=== PATIENT | male | born 1955 | race African-American/Black ===

== ENCOUNTER 2024-08-14 12:32 | Emergency (ER) | payer MEDICARE, MEDICAID, SELFPAY ==
[2024-08-14] VITALS (19 sets, daily range): BP systolic 105–147; BP diastolic 53–87; PULSE 94–111; TEMP 37.4; O2SAT 92–100; BMI 23.4
--- NOTE | 2024-08-14 13:06 | ED.GENADUL1 ---
HPI HPI - General Adult General Chief complaint: Shortness of Breath/Dyspnea Stated complaint: FLU LIKE SYMPTOMS Time Seen by Provider: 08/14/24 12:43 Source: patient Mode of arrival: walk-in History of Present Illness HPI narrative: Patient states he started getting cold symptoms 3 days ago with chills and then shortness of breath. He also noted swelling of the left hemiscrotum 2 or 3 days ago and called his PCP and was started on oral Bactrim yesterday. He has a history of myelodysplastic syndrome. Patient states that he runs low blood counts but when the counts go up he is started on oral chemotherapy which she is currently taking. He follows up with an oncologist in [place] and his PCP is also in [place]. Related Data Home Medications ?Medication ?Instructions ?Recorded ?Confirmed clopidogrel 75 mg tablet 75 mg PO DAILY 08/14/24 08/14/24 diltiazem HCl 240 mg 240 mg PO DAILY 08/14/24 08/14/24 capsule,extended release 24 hr (Cartia XT) famotidine 20 mg tablet 20 mg PO .hs PRN heartburn 08/14/24 08/14/24 hydrochlorothiazide 25 mg tablet 25 mg PO DAILY 08/14/24 08/14/24 lisinopril 20 mg tablet 20 mg PO DAILY 08/14/24 08/14/24 sulfamethoxazole 800 1 tab PO BID 08/14/24 08/14/24 mg-trimethoprim 160 mg tablet Previous Rx's ?Medication ?Instructions ?Recorded dextromethorphan-guaifenesin 30 1 tab PO BID #20 tabs 08/14/24 mg-600 mg tablet extended [id number] hr (Mucinex DM) doxycycline hyclate 100 mg capsule 100 mg PO BID 10 days #20 caps 08/14/24 Allergies Allergy/AdvReac Type Severity Reaction Status Date / Time Penicillins Allergy Unknown Verified 08/14/24 12:41 Opioid HPI Opioid Management Most Recent Opioid Data: No Data to Display Review of Systems ROS Status of ROS 10 or more systems reviewed and unremarkable except as noted in history and below [facility] Social History Little interest or pleasure in doing things: not at all Feeling down, depressed, or hopeless: not at all Exam Narrative Exam Narrative: Patient does not appear acutely ill or septic. He is normotensive and the heart rate is within normal range at 97 bpm. Temp is 99.4 degrees and his oxygen saturation on room air is 92%. There is no conversational dyspnea. HEENT exam is normal to inspection. Neck is supple. Lung sounds are grossly clear bilaterally. He is not wheezing and there are no rales. Heart has regular rate and rhythm. Abdomen is soft nontender. There is no organomegaly. Examination of the external genitalia reveals induration and firmness of the left hemiscrotum with minimal tenderness. There is no underlying crepitus or fluctuance. No penile lesions are noted. Patient does not have cellulitis of the perineum or groin. Lower extremities are warm and dry. He does not have unilateral leg swelling. Constitutional Vital Signs, click to edit/add: Last Vital Signs Temp 99.4 F 08/14/24 12:42 Pulse 97 H 08/14/24 17:00 Resp 23 H 08/14/24 17:00 BP 121/53 08/14/24 17:00 Pulse Ox 92 L 08/14/24 14:31 O2 Del Method Room Air 08/14/24 12:42 Course Vital Signs Vital signs: Vital Signs Temperature 99.4 F 08/14/24 12:42 Pulse Rate 96 H 08/14/24 12:42 Respiratory Rate 20 08/14/24 12:42 Blood Pressure 122/87 08/14/24 12:42 Pulse Oximetry 100 08/14/24 12:42 Oxygen Delivery Method Room Air 08/14/24 12:42 Temperature 99.4 F 08/14/24 12:42 Pulse Rate 97 H 08/14/24 17:00 Respiratory Rate 23 H 08/14/24 17:00 Blood Pressure 121/53 08/14/24 17:00 Pulse Oximetry 92 L 08/14/24 14:31 Oxygen Delivery Method Room Air 08/14/24 12:42 Medical Decision Making MDM Narrative Medical decision making narrative: 12-lead EKG was read by me and shows sinus tachycardia with a rate of 101 bpm. The axis is normal and there is incomplete right bundle branch block pattern old septal infarct is identified and there is no acute ST elevation. Patient presents with URI type symptoms and an incidental complaint of scrotal pain and swelling for which his physician had already started him on Bactrim yesterday. Scrotal Doppler studies do not report testicular mass torsion or inflammatory process but there is thickening of the scrotal wall which I feel is secondary to cellulitis. I do not suspect epididymitis based on this ultrasound report. No air in the soft tissue is reported. Patient has a low white count of 2.4 and a low hemoglobin of 8.8. I do not have access to his other labs in the system here but his daughter states that he tends to run low numbers and his CBC. Dimer was slightly elevated at 1.11 but his kidney function does not permit contrast administration. Dopplers were obtained of the legs are negative for DVT so I do not feel that I need to investigate him further with imaging of the lungs because he does not have symptoms suspicious for pulmonary embolism. His respiratory symptoms are more consistent with a viral upper respiratory tract infection. His chest x-ray shows some pulmonary hyperinflation without other acute findings likely due to underlying emphysema. Patient is treated with IV fluids and 1 g of Rocephin IV. I am adding doxycycline 100 mg twice daily for 10 days and have prescribed Mucinex DM for cough and congestion. He is advised close early follow-up with PCP and his oncologist after the weekend and is to return to the emergency department for any worsening symptoms. Lab Data Labs: Lab Results 08/14/24 08/14/24 Range/Units 13:15 13:23 WBC 2.4 L (4.0-11.0) 10^3/uL RBC 2.41 L (4.70-6.10) 10^6/uL Hgb 8.8 L (14.0-18.0) g/dL Hct 25.5 L (42.0-54.0) % MCV 105.8 H (80.0-94.0) fL MCH 36.5 H (25.9-34.0) pg MCHC 34.5 (29.9-35.2) g/dL RDW 14.5 (11.0-15.0) % Plt Count 57 L (150-450) 10^3/uL MPV 12.0 (9.5-13.5) fL Seg Neuts % (Manual) 80.0 H (43.0-75.0) Band Neutrophils % 4.0 (0-5) % Lymphocytes % (Manual) 13.0 L (20.5-60.0) % Monocytes % (Manual) 3.0 (1.7-12.0) % Eosinophils % (Manual) 0.0 L (0.9-7.0) % Basophils % (Manual) 0.0 L (0.2-2.0) % Neutrophils # (Manual) 1.92 (1.4-6.5) 10^3/uL Band Neutrophils # 0.1 (0.0-0.3) 10^3/uL Lymphocytes # (Manual) 0.31 L (1.20-3.80) 10^3/uL Monocytes # (Manual) 0.07 L (0.30-0.80) 10^3/uL Eosinophils # (Manual) 0.00 (0.00-0.70) 10^3/uL Basophils # (Manual) 0.00 (0.00-0.10) 10^3/uL Poikilocytosis 1+ Anisocytosis 1+ Ovalocytes 1+ Acanthocytes (Spur) 1+ D-Dimer 1.11 H* (<=0.59) mg/L FEU Sodium 135 L (136-145) mmol/L Potassium 3.8 (3.5-5.1) mmol/L Chloride 98 (98-107) mmol/L Carbon Dioxide 24.7 (21.0-32.0) mmol/L Anion Gap 16.1 BUN 38.0 H (7.0-18.0) mg/dL Creatinine 2.97 H (0.70-1.30) mg/dL Est GFR ( Amer) 26 L (>=60 mL/min/1.73m^2) Est GFR (Non-Af Amer) 21 L (>=60 mL/min/1.73m^2) BUN/Creatinine Ratio 12.8 Glucose 117 H (74-106) mg/dL Calcium 9.1 (8.5-10.1) mg/dL Total Bilirubin 1.1 H (0.2-1.0) mg/dL AST 18 (15-37) U/L ALT 39 (16-63) U/L Alkaline Phosphatase 109 (46-116) U/L Troponin I High Sens 12.9 (4.0-76.1) pg/mL Total Protein 7.8 (6.4-8.2) g/dL Albumin 3.4 (3.4-5.0) g/dL Globulin 4.4 g/dL Albumin/Globulin Ratio 0.8 Influenza Type A Ag Negative Influenza Type B Ag Negative SARS-CoV-2 Ag (CV2AG) Negative (NEGATIVE) Discharge Plan Discharge Chief Complaint: Shortness of Breath/Dyspnea Clinical Impression: Upper respiratory infection, viral, Cellulitis of scrotum Patient Disposition: Home, Self-Care Time of Disposition Decision: 17:31 Condition: Good Prescriptions / Home Meds: New doxycycline hyclate 100 mg capsule 100 mg PO BID 10 Days Qty: 20 0RF Mucinex DM 30-600 mg tablet extended release 12 hr 1 tab PO BID Qty: 20 0RF No Action clopidogrel 75 mg tablet 75 mg PO DAILY diltiazem HCl [Cartia XT] 240 mg capsule,extended release 24hr 240 mg PO DAILY famotidine 20 mg tablet 20 mg PO .qhs PRN (Reason: heartburn) hydrochlorothiazide 25 mg tablet 25 mg PO DAILY lisinopril 20 mg tablet 20 mg PO DAILY sulfamethoxazole-trimethoprim 800-160 mg tablet 1 tab PO BID Patient Comments: 08/13/24-08/22/24 Print Language: Romanian Instructions: Cellulitis (ED), Acute Bronchitis (ED) Additional Instructions: Follow-up with your PCP and your oncologist right after the weekend as soon as possible. Watch for fever and worsening of scrotal pain and swelling and seek immediate evaluation if that happens. Medications as prescribed. Return anytime for worsening symptoms. Referrals: [facility] [Primary Care Provider] - 1 week
--- NOTE | 2024-08-14 13:09 | ECG_ITS ---
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 Measurements Intervals [place] Rate: 101 P: -30 MT: 146 QRS: 19 QRSD: 90 T: 90 QT: 302 QTc: 360 Interpretive Statements 1120 Sinus tachycardia 2420 RSR (QR) in lead V1/V2, consistent with right ventricular conduction delay 3434 Septal myocardial infarction, age undetermined 9150 abnormal ECG Compared to ECG 08/02/2016 04:44:54 Myocardial infarct finding now present Sinus rhythm no longer present Electronically Signed On 08-14-2024 17:48:20 EST by DELIA BENITEZ M.D.
[2024-08-14 13:32] LABS: Hematocrit 25.5 % (42.0-54.0); Hemoglobin 8.8 g/dL (14.0-18.0); Mean Corpuscular HGB Conc 34.5 g/dL (29.9-35.2); Mean Corpuscular Hemoglobin 36.5 pg (25.9-34.0); Mean Corpuscular Volume 105.8 fL (80.0-94.0); Platelet Count 57 10^3/uL (150-450); Red Blood Count 2.41 10^6/uL (4.70-6.10); Red Cell Distribution Width 14.5 % (11.0-15.0); White Blood Count 2.4 10^3/uL (4.0-11.0)
[2024-08-14 13:50] LABS: Alanine Aminotransferase 39 U/L (16-63); Albumin Globulin Ratio 0.8; Albumin Level 3.4 g/dL (3.4-5.0); Alkaline Phosphatase 109 U/L (46-116); Anion Gap 16.1; Aspartate Amino Transferase 18 U/L (15-37); BUN Creatinine Ratio 12.8; Bilirubin Total 1.1 mg/dL (0.2-1.0); Calcium 9.1 mg/dL (8.5-10.1); Carbon Dioxide 24.7 mmol/L (21.0-32.0); Chloride 98 mmol/L (98-107); Estimated GFR (African America 26 (>=60 mL/min/1.73m^2); Estimated GFR (Non-African Ame 21 (>=60 mL/min/1.73m^2); Globulin 4.4 g/dL; Glucose 117 mg/dL (74-106); Potassium 3.8 mmol/L (3.5-5.1); Sodium 135 mmol/L (136-145); Total Protein 7.8 g/dL (6.4-8.2); Troponin I High Sensitivity 12.9 pg/mL (4.0-76.1)
[2024-08-14 13:58] LABS: Influenza Virus A Antigen Negative; Influenza Virus B Antigen Negative; Internal Control Within Normal Limits; SARS-CoV-2 Ag NEGATIVE (NEGATIVE)
[2024-08-14] MEDS: ACETAMINOPHEN 500 MG TABLET 1000 MG PO (14:00)
[2024-08-14 14:04] LABS: D Dimer 1.11 mg/L FEU (<=0.59)
[2024-08-14 14:13] LABS: Band Neutrophils Absolute 0.1 10^3/uL (0.0-0.3); Lymphocytes Absolute Manual 0.31 10^3/uL (1.20-3.80); Monocytes Absolute Manual 0.07 10^3/uL (0.30-0.80); Segmented Neut Absolute Manual 1.92 10^3/uL (1.4-6.5)
[2024-08-14 14:16] LABS: Anisocytosis 1+; Ovalocytes 1+; Poikilocytosis 1+
[2024-08-14 14:17] LABS: Acanthocytes 1+
[2024-08-14] MEDS: 0.9 % SODIUM CHLORIDE 1,000 ML 250 ML IV (16:45)
[2024-08-14] MEDS: CEFTRIAXONE 1,000 MG in 0.9 % SODIUM CHLORIDE 50 ML 100 MG IV (16:45)
== END 2024-08-14 17:55 | disposition home or self-care (01) ==
PROVIDERS: Emergency Provider Emergency Medicine
DX: J06.9 Acute upper respiratory infection, unspecified (principal); N49.2 Inflammatory disorders of scrotum; R06.02 Shortness of breath; D46.9 Myelodysplastic syndrome, unspecified; R79.89 Other specified abnormal findings of blood chemistry; N50.89 Other specified disorders of the male genital organs
CPT/HCPCS: 36415; 71046; 76870; 80053; 84484; 85007; 85027; 85378; 87804; 87811; 93005; 93970; 93976; 96365; 99285; J0696